=== PATIENT | female | born 1985 | race Two or more races ===

== ENCOUNTER 2018-10-03 23:52 | Emergency (ER) | payer SELFPAY ==
[~2018-10-03] VITALS: Ht 165.1 cm; Wt 86.2 kg
[2018-10-04] VITALS: BP 140/101
[2018-10-04 00:55] LABS: BASOPHILS # (AUTO) 0.1 /CMM (0.0-0.2); BASOPHILS % (AUTO) 0.8 % (0.0-2.0); EOSINOPHILS % (AUTO) 0.7 % (0.0-6.0); HEMATOCRIT 42 % (33-45); HEMOGLOBIN 14.4 g/dL (11.5-14.8); LYMPHOCYTES # (AUTO) 1.7 /CMM (0.8-4.8); LYMPHOCYTES % (AUTO) 14.2 % (20.0-44.0); MEAN CORPUSCULAR HGB CONC 35 g/dl (31.0-36.0); MEAN CORPUSCULAR VOLUME 89 fL (82-100); MONOCYTES # (AUTO) 0.7 /CMM (0.1-1.30); MONOCYTES % (AUTO) 5.9 % (2.0-12.0); NEUTROPHILS # (AUTO) 9.5 /CMM (1.8-8.9); NEUTROPHILS % (AUTO) 78.4 % (43.0-81.0); PLATELET COUNT (AUTO) 380 /CMM (150-450); RED BLOOD CELL COUNT(AUTO) 4.67 MIL/uL (4.0-5.2); WHITE BLOOD COUNT (AUTO) 12.1 K/uL (4.3-11.0)
[2018-10-04] MEDS ORDERED: ONDANSETRON 4 MG TAB.RAPDIS ONE ×2 (00:59→02:28)
[2018-10-04] MEDS ORDERED: ONDANSETRON 4 MG TAB.RAPDIS SL ONE ×2 (01:00→02:30)
[2018-10-04 01:16] LABS: ALBUMIN 4.4 g/dL (3.4-5.0); BILIRUBIN,TOTAL 0.4 mg/dL (0.2-1.0); POTASSIUM 3.8 mmol/L (3.5-5.1); TOTAL PROTEIN, SERUM 7.9 g/dL (6.4-8.2)
== END 2018-10-04 02:28 | disposition home or self-care (01) ==
LOC: ER 23:58
DX: R11.0 Nausea (principal)
CPT/HCPCS: 36415; 80053; 80305; 85025; 86850; 99283; Q0162 ×2